=== PATIENT | male | born 1970 | race Caucasian/White ===

== ENCOUNTER 2016-12-20 00:05 | Emergency (ER) | payer OTHER ==
[~2016-12-20] VITALS: Ht 172.7 cm; Wt 94.0 kg
[2016-12-20 00:19] VITALS: BP 119/71; PULSE 81; RESP 18; TEMP 98.5; O2SAT 94
[2016-12-20] MEDS ORDERED: ASPI81CH7 CHEW (00:24)
[2016-12-20] MEDS ORDERED: HYDR-2376 PO (00:24)
[2016-12-20] MEDS ORDERED: PLAV75TA29 PO (00:24)
[2016-12-20] MEDS ORDERED: XANA1TAB2 PO (00:24)
[2016-12-20] MEDS ORDERED: LIPI80TA PO (00:24)
[2016-12-20] MEDS ORDERED: ATEN50TA PO (00:24)
[2016-12-20 00:29] VITALS: RESP 18; O2SAT 96
[2016-12-20 00:34] LABS: AUTOMATED NEUTROPHIL # 3.1 TH/MM3 (1.8-7.7); BASOPHIL # 0.1 TH/MM3 (0-0.2); BASOPHIL % 0.9 % (0.0-2.0); EOSINOPHIL # 0.1 TH/MM3 (0-0.4); EOSINOPHIL % 1.2 % (0.0-4.0); HEMATOCRIT 39.1 % (39.0-51.0); HEMO FLAGS DIFF FINAL; LYMPH % 43.4 % (9.0-44.0); LYMPHOCYTE # 2.9 TH/MM3 (1.0-4.8); MEAN CORPUSCULAR HGB CONC 33.8 % (32.0-36.0); MONO % 8.4 % (0.0-8.0); NEUT % 46.1 % (16.0-70.0); PLATELET COUNT 235 TH/MM3 (150-450); RED BLOOD COUNT 4.55 MIL/MM3 (4.50-5.90); RED CELL DISTRIBUTION WIDTH 12.8 % (11.6-17.2); WHITE BLOOD COUNT 6.7 TH/MM3 (4.0-11.0)
--- NOTE | 2016-12-20 00:49 | RADRPT ---
EXAM DATE/TIME: 12/20/2016 00:30 [place] COMPARISON: No previous studies available for comparison. INDICATIONS : Chest pain starting today MEDICAL HISTORY : Hypertension. Hypercholesterolemia. SURGICAL HISTORY : Stent placement ENCOUNTER: Initial ACUITY: 1 day PAIN SCORE: 8/10 LOCATION: Center of chest FINDINGS: A single view of the chest demonstrates the lungs to be symmetrically aerated without evidence of mas s, infiltrate or effusion. The cardiomediastinal contours are unremarkable. Osseous structures are intact. CONCLUSION: Normal examination. Je Coyle Jr., MD on December 20, 2016 at 0:48 Board Certified Radiologist. This report was verified electronically.
[2016-12-20 00:50] LABS: APTT (PATIENT) 23.1 SEC (24.3-30.1); INTERNATIONAL NORMALIZED RATIO 0.9 RATIO; PROTHROMBIN TIME - PATIENT 10.2 SEC (9.8-11.6)
[2016-12-20 00:52] LABS: CREATINE KINASE 223 U/L (39-308)
[2016-12-20 00:53] LABS: ANION GAP 8 MEQ/L (5-15); BICARBONATE 29.3 MEQ/L (21.0-32.0); BLOOD UREA NITROGEN 12 MG/DL (7-18); CHLORIDE 109 MEQ/L (98-107); GLOMERULAR FILTRATION RATE 92 ML/MIN (>89); MAGNESIUM 2.2 MG/DL (1.5-2.5); POTASSIUM 3.7 MEQ/L (3.5-5.1); SODIUM (NA) 146 MEQ/L (136-145)
[2016-12-20 01:04] LABS: CKMB 0.9 NG/ML (0.5-3.6)
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
--- NOTE | 2016-12-20 12:50 | EKG ---
Date Performed: 12/20/2016 Time Performed: 00:30:41 PTAGE: 46 years EKG: Sinus rhythm NORMAL ECG NO PREVIOUS TRACING DOCTOR: Javon Crabtree Interpretating Date/Time 12/20/2016 12:48:52
== END 2016-12-20 02:05 | disposition left against medical advice (07) ==
LOC: NEPC 00:05
DX: R07.9 Chest pain, unspecified (principal); I25.10 Atherosclerotic heart disease of native coronary artery without angina pectoris; I10 Essential (primary) hypertension; I25.2 Old myocardial infarction; F17.220 Nicotine dependence, chewing tobacco, uncomplicated; Z79.02 Long term (current) use of antithrombotics/antiplatelets; Z79.899 Other long term (current) drug therapy
CPT/HCPCS: 71010; 80048; 82550; 82552; 83735; 84484; 85025; 85610; 85730; 93005